=== PATIENT | male | born 1965 | race Caucasian/White ===

== ENCOUNTER 2025-06-10 16:33 | Emergency (ER) | payer OTHER ==
[~2025-06-10] VITALS: Ht 180.3 cm; Wt 111.1 kg
[2025-06-10] MEDS ORDERED: Roxicodone5 MG PO (16:53)
[2025-06-10] MEDS ORDERED: Amoxicillin500 MG PO (16:53)
[2025-06-10] MEDS ORDERED: IBUP600 PO (16:53)
== END 2025-06-10 16:55 | disposition home or self-care (01) ==
LOC: ER 16:33
DX: K02.9 Dental caries, unspecified (principal); K08.89 Other specified disorders of teeth and supporting structures
CPT/HCPCS: 99282